=== PATIENT | female | born 1960 | race Caucasian/White ===

== ENCOUNTER 2022-10-16 08:22 | Emergency (ER) | payer OTHER ==
[~2022-10-16] VITALS: Ht 162.6 cm; Wt 77.1 kg
[2022-10-16] MEDS ORDERED: CYCL-309 PO (09:00)
[2022-10-16] MEDS ORDERED: HYDR-4060 PO ×2 (09:00→09:30)
[2022-10-16] MEDS ORDERED: NAPR-1180 PO (09:00)
[2022-10-16] MEDS ORDERED: SOLU-MEDROL 125MG VIAL IM ONE (09:00)
[2022-10-16 09:50] VITALS: BP 138/84
== END 2022-10-16 09:54 | disposition home or self-care (01) ==
LOC: EDH 08:22
DX: M54.41 Lumbago with sciatica, right side (principal); I10 Essential (primary) hypertension
CPT/HCPCS: 99283; 96372; J2930

== ENCOUNTER 2024-09-22 09:50 | Emergency (ER) | payer MEDICARE, OTHER ==
[~2024-09-22] VITALS: Ht 162.6 cm; Wt 74.8 kg
[~2024-09-22 09:50] MED LIST: CYCL-309 PO; HYDR-4060 PO; NAPR-1180 PO
--- NOTE | 2024-09-22 10:51 | HMCIMG ---
Exam Type: SHOULDER COMP 2+VWS LT Clinical Information: PAIN Comparison: None FINDINGS: The examination is unremarkable. Specifically, the glenohumeral and acromioclavicular joints are preserved. Visualized portions of the humerus, the scapula, and the clavicle as well as the upper ribcage are unremarkable. No pulmonary pathology is noted in the visualized portions of the upper lobe. The soft tissues are preserved. There are no other gross abnormalities. IMPRESSION: NORMAL EXAMINATION.
[2024-09-22 11:41] VITALS: BP 136/70; PULSE 67; RESP 20; TEMP 98; O2SAT 100
[2024-09-22] MEDS ORDERED: KETO10TA2 PO (11:47)
--- NOTE | 2024-09-22 11:50 | ERN ---
General Chief Complaint: Shoulder Injury/Pain Stated Complaint: LEFT SHOULDER PAIN X 6 WEEKS Time Seen by MD: 10:54 Time Seen by Midlevel: 10:54 Source: patient History of Present Illness Initial Comments Patient is a 64-year-old female presenting to the emergency department with left shoulder pain that has been ongoing for the last six weeks. Patient reports a total right shoulder replacement performed 10 weeks ago in [place]. She was at a sling in her right arm and has been doing all of her daily activities with her left are. She states her pain started four weeks after the surgery and believes it may be related to the over use that she has been doing. Denies any direct injury to the area. Denies any fall. Denies any other symptoms at this time. [place] She does not have an established primary care doctor or habilitation specialist here. Allergies: Coded Allergies: No Known Allergies (Unverified Allergy, Unknown, 10/16/22) Home Meds Active Scripts Hydrocodone/Acetaminophen (Hydrocodon-Acetaminophen 5-325) 1 Each Tablet, 1 EACH PO Q6H for pain, #12 TAB 0 Refills Prov:RODRICK LAUREN MD 10/16/22 Cyclobenzaprine HCl (Cyclobenzaprine HCl) 10 Mg Tablet, 10 MG PO TID for FOR MUSCLE SPASM, #20 TAB 0 Refills Prov:RODRICK LAUREN MD 10/16/22 Naproxen (Naprosyn) 500 Mg Tablet, 500 MG PO BIDPC for 10 Days, #20 TAB 0 Refills Prov:RODRICK LAUREN MD 10/16/22 Past Medical History Past Medical History: Hypertension Past Surgical History: Other, None Surgical History Other: RIGHT SHOULDER , SPINE Social History Social History: Negative, Lives with family ROS Dictation CONSTITUTIONAL: Negative except for HPI HEAD/FACE: Negative except for HPI EENT: Negative except for HPI RESPIRATORY: Negative except for HPI GASTROINTESTINAL/ABDOMINAL: Negative except for HPI GENITOURINARY: Negative except for HPI MUSCULOSKELETAL: Negative except for HPI INTEGUMENTARY: Negative except for HPI NEUROLOGICAL/PSYCH: Negative except for HPI HEMATOLOGIC/LYMPHATIC: Negative except for HPI All Systems Negative, Except as noted above. 13 point review of systems assessed and all negative except for above. Physical Exam Physical Exam Dictation Vital Signs reviewed General Appearance: Alert, oriented x 3, no acute distress, well developed, nourished. Head and Face: non-traumatic. Eyes: PERRL, pink conjunctivas, eyelid no trauma, anterior chamber with arcus senilis. Ears: Pinnas intact and no signs of trauma or erythema ear canals clear and no discharge TM no erythema Nose: No discharge, no bleeding. Oropharynx: Mouth normal, tongue pink, pharynx clear,no erythema, tonsils no exudates, no abscesses noted, mucous membrane moist Neck: Supple, non-tender, no thyromegaly, no masses, no JVD, no bruits Breast:Deferred Chest:No tenderness, no crepitus, no paradoxical movement, no retractions Lungs:Clear, well-ventilated, symmetric, no rales, no wheezing, no rhonchi, no stridor, good breath sounds bilaterally Heart: Regular rate, regular rhythm, no murmur, no gallops Vascular: no peripheral edema, Abdomen: Soft, positive bowel sounds, nondistended, no guarding, nontender, no rebound, no masses no hepatomegaly, no splenomegaly, no Martino's sign, no hernias. Rectal: Deferred Genital: Deferred Neurological: Normal speech, motor function intact, sensory function intact Musculoskeletal: Neck nontender, full range of motion, back nontender, full range of motion, Extremities: nontender, full range of motion Skin: Color pink, dry, no turgor, no rash, no lacerations, no abrasions, no contusions. Lymphatic: Deferred MDM MDM: Patient is a 64-year-old female presenting to the emergency department with left shoulder pain that has been ongoing for the last six weeks. Patient reports a total right shoulder replacement performed 10 weeks ago in [place]. She was at a sling in her right arm and has been doing all of her daily activities with her left are. She states her pain started four weeks after the surgery and believes it may be related to the over use that she has been doing. Denies any direct injury to the area. Denies any fall. Denies any other symptoms at this time. Patient states [place] was [place] the [place] She does not have an established primary care doctor or habilitation specialist here. On physical examination anh bell has full range of motion of the left shoulder. There was no swelling, or erythema over the left shoulder. There is some mild tenderness the lateral aspect of the left shoulder this is. Pain is reproducible with movement. Symptoms appear to be musculoskeletal in nature. Patient was given pain medication in the emergency department and will be discharged home with pain ma nagement. Patient was advised to follow up with her primary care doctor or habilitation specialist back in [place] for outpatient evaluation. Patient agrees and all questions have been answered. Return precautions discussed Differential diagnosis: Fracture, dislocation, muscle strain, impingement syndrome There are no social concerns with this patient. Prescription drug management Prescriptions will include: Toradol Medical management and examination interpretation discussions were had by me with other qualified healthcare professionals as indicated for the patient's care. ED Course Orders Procedure Category Date Status Time Shoulder Comp 2+Vws Lt RAD 09/22/24 Resulted 10:18 Ketorolac PHA 09/22/24 In Process Tromethamine 15mg/Ml 12:00 Hydrocodone/Apap PHA 09/22/24 In Process 10/325 Tab ([place] 10) 12:00 Current Medications Medications (Trade) Dose Ordered Sig/Nellie Route PRN Reason Start Time Stop Time Status Last Admin Dose Admin Acetaminophen/ Hydrocodone Bitart (NORco 10) 1 tab ONCE ONCE PO 09/22/24 12:00 09/22/24 12:01 Ketorolac Tromethamine (toRADol) 15 mg ONCE ONCE IM 09/22/24 12:00 09/22/24 12:01 Vital Signs Date Time Temp Pulse Resp B/P (MAP) Pulse Ox O2 Delivery O2 Flow Rate FiO2 09/22/24 11:41 98.1 67 20 136/70 100 Room Air* 0 21 09/22/24 10:20 98.1 67 20 136/70 100 Room Air 0 [facility] [address] [id number] IMAGING REPORT Signed PATIENT: KESHIA PERKINS MR#: [id number] : 1960 SEX: F AGE: 64 LOCATION: [facility] ORDER 1019 STATUS: REG ER REPORT#: [id number] SERVICE 1018 REASON: PAIN ORDERING PHYSICIAN: NEHAL LEHMAN MD PROCEDURE: SHOL 2V LT - SHOULDER COMP 2+VWS LT Exam Type: SHOULDER COMP 2+VWS LT Clinical Information: PAIN Comparison: None FINDINGS: The examination is unremarkable. Specifically, the glenohumeral and acromioclavicular joints are preserved. Visualized portions of the humerus, the scapula, and the clavicle as well as the upper ribcage are unremarkable. No pulmonary pathology is noted in the visualized portions of the upper lobe. The soft tissues are preserved. There are no other gross abnormalities. IMPRESSION: NORMAL EXAMINATION. DICTATED BY: RHONA RAM MD DATE: 09/22/24 1048 ELECTRONICALLY SIGNED BY: RHONA RAM MD DATE: 09/22/24 1051 DX & DISP Disposition: Discharge Departure Impression: Primary Impression: Muscle strain of left shoulder Condition: Stable Scripts Ketorolac Tromethamine (Ketorolac Tromethamine) 10 Mg Tablet 1 TAB PO BID for pain for 5 Days, #10 TAB 0 Refills Prov: CONNIE HALEY 09/22/24 Additional Instructions: Your left shoulder x-ray does not show any evidence of a fracture or dislocation. You will need further evaluation outpatient by an habilitation specialist. Please follow up with your doctor for outpatient evaluation. Return to the ER if you develop any new or worsening symptoms. Referrals: SELF,REFERRAL (PCP) I have reviewed the case, and I agree with, Diagnosis and Plan I performed the substantive portion of the visit. I have reviewed and personally made and approve the management plan that is documented in the note by myself or the FABIO. I acknowledge for responsibility for the patient's management plan. CONNIE HALEY Sep 22, 2024 11:50
[2024-09-22] MEDS: HYDROcodone/acetaMINOPHEN 10/325 MG TAB PO ONE (12:05)
[2024-09-22] MEDS: ketOROlac 15MG/ML VIAL (15MG/ML) IM ONE (12:05)
== END 2024-09-22 12:32 | disposition home or self-care (01) ==
LOC: EDH 09:50
DX: S46.812A Strain of other muscles, fascia and tendons at shoulder and upper arm level, left arm, initial encounter (principal); I10 Essential (primary) hypertension; Z96.611 Presence of right artificial shoulder joint; Z79.899 Other long term (current) drug therapy; Z98.890 Other specified postprocedural states; X58.XXXA Exposure to other specified factors, initial encounter; Y93.89 Activity, other specified; Y92.89 Other specified places as the place of occurrence of the external cause; Y99.8 Other external cause status
CPT/HCPCS: 99283; 73030; 96372; J1885